=== PATIENT | male | born 1995 | race African-American/Black ===

== ENCOUNTER 2017-10-15 22:35 | Emergency (ER) | payer SELFPAY ==
[2017-10-15] MEDS ORDERED: NS 0.9% 1000 ML* 1,000 ML IV ONE (23:08)
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
[2017-10-15 23:35] LABS: ABS Basophils 0 10^3/ul (0-0.2); ABS Eosinophils 0.2 10^3/ul (0-0.6); ABS Lymphocytes 1.6 10^3/ul (1.0-4.8); ABS Monocytes 0.5 10^3/ul (0-0.8); ABS Neutrophils 3.7 10^3/ul (1.5-7.7); ABS Nucleated RBC 0 10^3/ul; Hematocrit 44 % (42-52); Hemoglobin 15.6 g/dl (14.0-18.0); Lymphocyte % 26.6 % (25-47); Mean Corpuscular HGB Conc 35 g/dl (31-36); Mean Corpuscular Hemoglobin 33 pg (27-31); Mean Corpuscular Volume 94 fL (80-94); Mean Platelet Volume 8.1 um3 (7.4-10.4); Nucleated Red Blood Cells % 0.1; Platelet Count 142 10^3/ul (150-450); Red Blood Count 4.71 10^6/ul (4.00-5.40); Red Cell Distribution Width 13 % (10.5-15); White Blood Count 6.1 10^3/ul (3.5-10.8)
[2017-10-15 23:57] LABS: EGFR Non-African American 88.3 (>60)
[2017-10-16] MEDS ORDERED: Potassium Chlor TAB* 20 MEQ TAB.ER PO ONE ×2 (00:44→02:04)
[2017-10-16 02:41] LABS: Urine Appearance Clear; Urine Blood Negative (Negative); Urine Color Colorless; Urine Ketones Negative (Negative); Urine Protein Negative (Negative); Urine Urobilinogen Negative (Negative)
[2017-10-16 03:46] VITALS: BP 126/77
--- NOTE | 2017-10-16 09:14 | RAD ---
Indication: Syncope. CT of the brain performed without IV contrast. Comparison is made with previous exam dated November 13, 2006. Ventricular structures are midline. No midline shift is noted. The extra-axial spaces are unremarkable. There is no evidence of intracranial mass or hemorrhage. No other high or low density lesions are identified. Mastoid air cells and paranasal sinuses are otherwise unremarkable. IMPRESSION: No intracranial mass or hemorrhage is noted.
== END 2017-10-16 03:45 | disposition home or self-care (01) ==
LOC: ED 22:35
DX: F19.10 Other psychoactive substance abuse, uncomplicated (principal); F17.210 Nicotine dependence, cigarettes, uncomplicated
CPT/HCPCS: 36415; 70450; 80053; 80307; 80320; 81003; 85025; 93005; 99283; A9270-GY; G0480